=== PATIENT | female | born 1965 | race Asian ===

== ENCOUNTER 2018-02-21 15:36 | Outpatient (CLI) | payer BC | END 2018-02-21 21:00 | disposition home or self-care (01) | LOC: SMA 15:36 | PROVIDERS: ATTEND Family Medicine | DX: Z12.31 Encounter for screening mammogram for malignant neoplasm of breast (principal) | CPT/HCPCS: 77067 ==

== ENCOUNTER 2019-02-27 10:46 | Outpatient (CLI) | payer BC | END 2019-02-27 18:07 | disposition home or self-care (01) | LOC: SMA 10:46 | PROVIDERS: ATTEND Family Medicine | DX: Z12.31 Encounter for screening mammogram for malignant neoplasm of breast (principal) | CPT/HCPCS: 71046-TC; 77067 ==

== ENCOUNTER 2020-09-13 09:10 | Outpatient (CLI) | payer BC | END 2020-09-13 21:22 | disposition home or self-care (01) | LOC: SMA 09:10 | PROVIDERS: ATTEND Family Medicine | DX: Z12.31 Encounter for screening mammogram for malignant neoplasm of breast (principal) | CPT/HCPCS: 77067 ==